=== PATIENT | female | born 1990 | race Two or more races ===

== ENCOUNTER 2019-04-13 18:05 | Inpatient (IN) | payer SELFPAY ==
[~2019-04-13] VITALS: Ht 153 cm; Wt 81.2 kg
[2019-04-13] MEDS ORDERED: ZOLPIDEM 5 MG TABLET. PO PRN (18:15)
[2019-04-13] MEDS ORDERED: ONDANSETRON PF 4 MG/2 ML VIAL. IV PRN (18:15)
[2019-04-13] MEDS ORDERED: TERBUTALINE 1 MG/ML VIAL. SQ PRN (18:15)
[2019-04-13] MEDS ORDERED: NALBUPHINE 10 MG/ML AMPUL. IV PRN ×2 (18:15)
[2019-04-13] MEDS ORDERED: IBUPROFEN 400 MG TABLET. PO PRN (18:15)
[2019-04-13] MEDS ORDERED: CITRIC ACID/SODIUM CITRATE 30 ML SOLUTION. PO PRN (18:15)
[2019-04-13] MEDS ORDERED: LIDOCAINE 1% PF 30 ML VIAL. INJ PRN (18:15)
[2019-04-13] MEDS ORDERED: 0.9 % SODIUM CHLORIDE 10 ML DISP.SYRIN. IV PRN (18:15)
[2019-04-13] MEDS ORDERED: ACETAMINOPHEN 325 MG TABLET. PO PRN (18:15)
[2019-04-13] MEDS ORDERED: DOCUSATE SODIUM 283 MG/5 ML ENEMA. PR PRN (18:15)
[2019-04-13] MEDS ORDERED: fentaNYL PF VIAL 100 MCG/2 ML VIAL IV PRN ×2 (18:15)
[2019-04-13] MEDS ORDERED: MAG HYDROX/ALUMINUM HYD/SIMETH 30 ML ORAL.SUSP PO PRN (18:15)
[2019-04-13] MEDS ORDERED: DINOPROSTONE 10 MG SUPP.VAG VG ONE (18:30)
[2019-04-13] MEDS ORDERED: AMPICILLIN SODIUM 2 GM in IV NORMAL SALINE 100ML 100 ML IV ONE (18:30)
[2019-04-13 18:59] VITALS: BP 114/67
[2019-04-13 19:22] LABS: BASO # 0.1 x10^3/uL (0.0-0.2); BASO % 1 % (0-3); EOS # 0.1 x10^3/uL (0.0-0.7); EOS % 1 % (0-3); HEMATOCRIT 36.5 % (36.0-47.0); HEMOGLOBIN 12.1 g/dL (12.0-15.5); LYMPH # 2.4 x10^3/uL (1.0-4.8); LYMPH % 23 % (24-48); MEAN CORPUSCULAR HEMOGLOBIN 27 pg (25-35); MEAN CORPUSCULAR HGB CONC 33 g/dL (31-37); MEAN CORPUSCULAR VOLUME 82 fL (79-100); MONO # 0.6 x10^3/uL (0.0-1.1); MONO % 6 % (0-9); NEUT % 69 % (31-73); PLATELET COUNT 285 x10^3/uL (140-400); RED BLOOD COUNT 4.42 x10^6/uL (3.50-5.40); RED CELL DISTRIBUTION WIDTH 15.5 % (11.5-14.5); WHITE BLOOD COUNT 10.1 x10^3/uL (4.0-11.0)
[2019-04-13] MEDS: IV RINGERS,LACTATED 1000ML 1,000 ML IV SCH (19:30)
[2019-04-13 21:49] LABS: BILIRUBIN,URINE NEGATIVE (NEG); CLARITY,URINE CLEAR; COLOR,URINE YELLOW; NITRITE,URINE NEGATIVE (NEG); PROTEIN,URINE NEGATIVE (NEG-TRACE); UROBILINOGEN,URINE 0.2 mg/dL (0.2 mg/dL)
[2019-04-13 21:55] LABS: BACTERIA,URINE MODERATE /HPF (0-FEW); RBC,URINE RARE /HPF (0-2); SQUAMOUS EPITHELIAL CELL,UR MANY /LPF; WBC,URINE OCC /HPF (0-4)
[2019-04-13] MEDS: diphenhydrAMINE HCL 25 MG CAPSULE PO PRN (23:09)
[2019-04-14] MEDS: IV RINGERS,LACTATED 1000ML 1,000 ML IV SCH (06:48)
[2019-04-14] MEDS: OXYTOCIN 30 UNIT/500 ML PREMIX 500 ML IV PRN (06:50)
[2019-04-14] MEDS ORDERED: LIDOCAINE 2% PF 5 ML VIAL. ONE (08:19)
[2019-04-14] MEDS: AMPICILLIN SODIUM 1 GM in IV NORMAL SALINE 50ML 50 ML IV SCH (11:17)
--- NOTE | 2019-04-14 13:13 | PDOC1 ---
OB - History Hx of Present Care: Good Care Ultrasounds: Normal mid trimester US Obstetrical Complications: None Medical Complications: None Past Family/Social History * Past Medical, Surgical, Family and Obstetric Histories reviewed from chart. Rubella: Immune RPR/VDRL: Negative GBS Status: Negative HBsAG: Negative OB - Chief Complaint & HPI Date of Admission: Date of Admission: Apr 13, 2019 at 18:05 Chief Complaint/History : 3 Para: 0 EGA: 40 Reason for admission: induction of labor Indication for induction: post dates Admission Nurse Assessment Rev: Yes OB - Admission Exam Physical Exam Vitals: VS - Last 72 Hours, by Label Date Time Temp Pulse Resp B/P (MAP) Pulse Ox O2 Delivery O2 Flow Rate FiO2 04/13/19 18:59 99.1 96 18 114/67 (83) 98 Room Air 99.1 HEENT: Normal Heart: Regular Rate Lungs: Clear Abdomen: Gravid, Non tender, Soft Extremities: Edema Reflexes: Normal Cervical Dilatation: 1cm Effacement: 50% Station: -3 Membranes: Intact Amniotic Fluid: Clear Heart Rate: Normal Accelerations: Accelerations Present Decelerations: No decelerations Contractions on Admission: None Text A: 40 wks IUP IOL post term P: Admit cervidil, then pitocin. AVELINA MEYERS Jr, MD Apr 14, 2019 13:13
[2019-04-14] MEDS ORDERED: DINOPROSTONE 10 MG SUPP.VAG VG ONE (17:00)
[2019-04-14] MEDS: lamoTRIgine 100 MG TABLET. PO SCH (21:39)
[2019-04-14] MEDS: HALOPERIDOL 5 MG TABLET. PO SCH (21:39)
[2019-04-14] MEDS: diphenhydrAMINE HCL 25 MG CAPSULE PO PRN (22:11)
[2019-04-15] MEDS: OXYTOCIN 30 UNIT/500 ML PREMIX 500 ML IV PRN (06:37)
[2019-04-15] MEDS: AMPICILLIN SODIUM 1 GM in IV NORMAL SALINE 50ML 50 ML IV SCH ×2 (06:37→10:20)
--- NOTE | 2019-04-15 08:23 | PDOC ---
OB Progress Note Date of Service 04/15/19 Time of Evaluation 0820 Notes Pt. feeling well. Lab Laboratory Tests Test 04/13/19 19:12 04/13/19 21:40 White Blood Count 10.1 x10^3/uL (4.0-11.0) Red Blood Count 4.42 x10^6/uL (3.50-5.40) Hemoglobin 12.1 g/dL (12.0-15.5) Hematocrit 36.5 % (36.0-47.0) Mean Corpuscular Volume 82 fL (79-100) Mean Corpuscular Hemoglobin 27 pg (25-35) Mean Corpuscular Hemoglobin Concent 33 g/dL (31-37) Red Cell Distribution Width 15.5 % (11.5-14.5) Platelet Count 285 x10^3/uL (140-400) Neutrophils (%) (Auto) 69 % (31-73) Lymphocytes (%) (Auto) 23 % (24-48) Monocytes (%) (Auto) 6 % (0-9) Eosinophils (%) (Auto) 1 % (0-3) Basophils (%) (Auto) 1 % (0-3) Neutrophils # (Auto) 7.0 x10^3/uL (1.8-7.7) Lymphocytes # (Auto) 2.4 x10^3/uL (1.0-4.8) Monocytes # (Auto) 0.6 x10^3/uL (0.0-1.1) Eosinophils # (Auto) 0.1 x10^3/uL (0.0-0.7) Basophils # (Auto) 0.1 x10^3/uL (0.0-0.2) Treponema pallidum Antibody Nonreactive (Nonreactive) Urine Collection Type Unknown Urine Color Yellow Urine Clarity Clear Urine pH 7.0 Urine Specific [place] 1.010 Urine Protein Negative mg/dL (NEG-TRACE) Urine Glucose (UA) 100 mg/dL (NEG) Urine Ketones (Stick) Negative mg/dL (NEG) Urine Blood Negative (NEG) Urine Nitrite Negative (NEG) Urine Bilirubin Negative (NEG) Urine Urobilinogen Dipstick 0.2 mg/dL (0.2 mg/dL) Urine Leukocyte Esterase Negative (NEG) Urine RBC Rare /HPF (0-2) Urine WBC Occ /HPF (0-4) Urine Squamous Epithelial Cells Many /LPF Urine Bacteria Moderate /HPF (0-FEW) Medications Current Medications Sodium Chloride (Normal Saline Flush) 3 ml QSHIFT PRN IV AFTER MEDS AND BLOOD DRAWS; Start 04/13/19 at 18:15 Nalbuphine HCl (Nubain) 5 mg PRN Q1HR PRN IV Mild to moderate labor pain; Start 04/13/19 at 18:15 Nalbuphine HCl (Nubain) 10 mg PRN Q1HR PRN IV Severe labor pain; Start 04/13/19 at 18:15 Fentanyl Citrate (Fentanyl 2ml Vial) 50 mcg PRN Q30MIN PRN IV Mild to moderate pain; Start 04/13/19 at 18:15 Fentanyl Citrate (Fentanyl 2ml Vial) 100 mcg PRN Q30MIN PRN IV Severe pain; Start 04/13/19 at 18:15 Acetaminophen (Tylenol) 650 mg PRN Q6HRS PRN PO MILD PAIN / TEMP; Start 04/13/19 at 18:15 Ondansetron HCl (Zofran) 4 mg PRN Q4HRS PRN IV NAUSEA/VOMITING; Start 04/13/19 at 18:15 Al Hydroxide/Mg Hydroxide (Mylanta Plus Xs) 30 ml PRN Q4HRS PRN PO HEARTBURN / GAS; Start 04/13/19 at 18:15 Citric Acid/ Sodium Citrate (Bicitra) 30 ml 1X PRN PRN PO DYSPEPSIA; Start 04/13/19 at 18:15; Stop 04/14/19 at 18:14; Status DC Zolpidem Tartrate (Ambien) 5 mg PRN QHS PRN PO INSOMNIA; Start 04/13/19 at 18:15 Terbutaline Sulfate (Brethine) 0.25 mg 1X PRN PRN SQ SEE COMMENTS; Start 04/13/19 at 18:15; Stop 04/14/19 at 18:14; Status DC Lidocaine HCl (Xylocaine 1% Pf 30ml Vial) 30 ml 1X PRN PRN INJ SEE COMMENTS; Start 04/13/19 at 18:15; Stop 04/15/19 at 18:14 Ampicillin Sodium 2 gm/Sodium Chloride 100 ml @ 200 mls/hr 1X ONCE IV Last administered on 04/14/19at 06:49; Start 04/13/19 at 18:30; Stop 04/13/19 at 18:59; Status DC Ampicillin Sodium 1 gm/Sodium Chloride 50 ml @ 100 mls/hr Q4H IV Last administered on 04/15/19 06:37; Start 04/13/19 at 22:30 Oxytocin/Sodium Chloride 500 ml @ 0 mls/hr CONT PRN IV SEE I/O RECORD Last administered on 04/15/19 06:37; Start 04/13/19 at 18:15 Ibuprofen (Motrin) 800 mg PRN Q6HRS PRN PO PAIN; Start 04/13/19 at 18:15 Docusate Sodium (Enemeez) 283 mg PRN DAILY PRN [place] CONSTIPATION; Start 04/13/19 at 18:15 Dinoprostone (Cervidil) 10 mg 1X ONCE VG Last administered on 04/13/19 19:24; Start 04/13/19 at 18:30; Stop 04/13/19 at 18:31; Status DC Ringer's Solution 1,000 ml @ 100 mls/hr Q10H IV Last administered on 04/14/19 06:48; Start 04/13/19 at 19:30 Diphenhydramine HCl (Benadryl) 25 mg PRN QHS PRN PO INSOMNIA Last administered on 04/14/19 22:11; Start 04/13/19 at 20:00 Lidocaine HCl (Lidocaine Pf 2% Vial) 5 ml STK-MED ONCE .ROUTE ; Start 04/14/19 at 08:19; Stop 04/14/19 at 08:20; Status DC Haloperidol (Haldol) 5 mg DAILY10 PO Last administered on 04/14/19 21:39; Start 04/14/19 at 14:00 Lamotrigine (LaMICtal) 100 mg DAILY10 PO Last administered on 04/14/19 21:39; Start 04/14/19 at 15:00 Dinoprostone (Cervidil) 10 mg 1X ONCE VG Last administered on 04/14/19 17:16; Start 04/14/19 at 17:00; Stop 04/14/19 at 17:01; Status DC Exam Abd: soft, non tender Pelvic: cervix closed Assessment 40 wks IUP IOL Plan of Care: Continue current Tx, Mgmt (Pt. Day#2 of induction. If no cervical change by noon, then proceed with c/s.) AVELINA MEYERS Jr, MD Apr 15, 2019 08:22
[2019-04-15] MEDS: HALOPERIDOL 5 MG TABLET. PO SCH (10:00)
[2019-04-15] MEDS: lamoTRIgine 100 MG TABLET. PO SCH (10:00)
[2019-04-15] MEDS: IV RINGERS,LACTATED 1000ML 1,000 ML IV SCH ×4 (10:20→22:20)
[2019-04-15] MEDS ORDERED: CITRIC ACID/SODIUM CITRATE 30 ML SOLUTION. PO ONE (11:15)
[2019-04-15] MEDS ORDERED: ONDANSETRON PF 4 MG/2 ML VIAL. ONE ×2 (11:59→12:58)
[2019-04-15] MEDS ORDERED: MORPHINE PF 10 MG/10 ML AMPUL. ONE (11:59)
[2019-04-15] MEDS ORDERED: FAMOTIDINE 20 MG/2 ML VIAL ONE (11:59)
[2019-04-15] MEDS ORDERED: ePHEDrine PF IN SALINE 50 MG/10 ML SYRINGE. IV ONE (11:59)
[2019-04-15] MEDS ORDERED: fentaNYL PF VIAL 100 MCG/2 ML VIAL ONE (11:59)
[2019-04-15 12:06] LABS: HEMATOCRIT 37.1 % (36.0-47.0); HEMOGLOBIN 12.2 g/dL (12.0-15.5); RED BLOOD COUNT 4.52 x10^6/uL (3.50-5.40); RED CELL DISTRIBUTION WIDTH 15.3 % (11.5-14.5)
[2019-04-15] MEDS ORDERED: OXYTOCIN 10 UNIT/ML VIAL. ONE ×2 (12:37→12:38)
--- NOTE | 2019-04-15 13:08 | PDOC4 ---
OB Operative Note Date: Apr 15, 2019 PRE OP DIAGNOSIS: Other (FTD) POST OP DIAGNOSIS: Other (Same) OPERATION PERFORMED: [facility] Surgeon Dr. Valladares [employer] Dr. Murillo Anesthesia: Regional (Spinal) Blood Loss 800 ml Specimen placenta and OB Findings: Position (Vertex), Sex (Male), (8/9), Weight (8 Lb 5 oz) Complications none Additional Remarks pt. AVELINA Jordan Jr, MD Apr 15, 2019 13:08
[2019-04-15] MEDS ORDERED: diphenhydrAMINE ORAL ELIXIR 12.5 MG/5 ML ML PO PRN (13:15)
[2019-04-15] MEDS ORDERED: IBUPROFEN 400 MG TABLET. PO PRN (13:15)
[2019-04-15] MEDS ORDERED: ONDANSETRON PF 4 MG/2 ML VIAL. IV PRN (13:15)
[2019-04-15] MEDS ORDERED: 0.9 % SODIUM CHLORIDE 10 ML DISP.SYRIN. IV PRN (13:15)
[2019-04-15] MEDS ORDERED: ZOLPIDEM 5 MG TABLET. PO PRN (13:15)
[2019-04-15] MEDS ORDERED: OXYTOCIN 30 UNIT/500 ML PREMIX 500 ML IV PRN (13:15)
--- NOTE | 2019-04-15 13:21 | OP ---
DATE OF SURGERY: PREOPERATIVE DIAGNOSIS: Failure to dilate. POSTOPERATIVE DIAGNOSIS: Failure to dilate. PROCEDURE: Primary low transverse section. SURGEON: Avelina Valladares MD SAW SETTER: Dr. Murillo. ANESTHESIA: Spinal. ESTIMATED BLOOD LOSS: 800 mL. COMPLICATIONS: None. FINDINGS: Viable male , Apgars 8 and 9, weight 8 pounds 5 ounces. Three-vessel cord placenta delivered manually intact. SUMMARY: A 28-year-old 3, para 0 at 40 weeks, who presented for induction of labor. She failed to dilate after 2 days of induction. Decision was made to proceed with primary section. She was counseled on the risks, benefits, and expectations and voiced clear understanding to proceed. DESCRIPTION OF PROCEDURE: The patient was taken to surgery suite and placed in dorsal supine position. She was prepped with ChloraPrep and draped in a sterile fashion. After adequate anesthesia, Pfannenstiel skin incision was made with scalpel down to and through the fascia. The fascia was extended laterally using curved Rojas scissors. The superior edge of fascia was grasped with 2 Td clamps and dissected free of the abdominal rectus muscles using blunt dissection along with Bovie cautery. The same process took place inferiorly. The abdominal rectus muscle dissected bluntly at the midline. Peritoneum was entered sharply with Metzenbaum scissors. This incision was extended superiorly as well as inferiorly. The Pierre ring retractor was placed. A low transverse hysterotomy incision was made with scalpel down to the amniotic sac. Hysterotomy incision was extended laterally and superiorly. Amniotomy was performed with Allis clamp. With aid of fundal pressure, the 's head was delivered in a smooth atraumatic manner. With additional fundal pressure, the anterior shoulder was delivered followed by posterior shoulder. Rest of the male was delivered. The was suctioned with a bulb syringe orally and nasally. The umbilical cord was clamped twice and cut and viable male was handed to waiting nursing staff. Umbilical cord blood was then obtained. Three-vessel cord placenta was delivered manually intact. The uterus then exteriorized, cleared of clot and debris with moist lap. The hysterotomy incision was then reapproximated using #1 Vicryl suture in a running locked fashion and imbricated layer of #1 Vicryl suture was utilized in a running fashion for better hemostasis. Uterus palpated firm. Fallopian tubes and ovaries appeared normal bilaterally. Posterior cul-de-sac was cleared of clot and debris with moist lap. The uterus then returned to the abdomen. Pericolic gutters were cleared of clot and debris with moist lap. Hysterotomy incision was reviewed and was hemostatic. The Pierre ring retractor was removed. The peritoneum was reapproximated using #1 Vicryl suture in a running fashion. Fascia was reapproximated using 0 Vicryl suture in running fashion. Skin was reapproximated using 4-0 Vicryl suture in subcuticular manner. The patient tolerated the procedure well and was taken to recovery room in stable condition. Sponge and needle count correct x 3. AVELINA VALLADARES MD DR: ALYSON/ulba JOB#: [id number] / [id number]
[2019-04-15 16:43] VITALS: BP 110/62
[2019-04-15] MEDS ORDERED: FERROUS SULFATE 325 MG TABLET. PO SCH (17:00)
[2019-04-15 19:41] VITALS: BP 107/63
[2019-04-15 23:29] VITALS: BP 107/68
[2019-04-16 03:41] VITALS: BP 99/55
[2019-04-16] MEDS: oxyCODONE/APAP 5/325 1 TAB TABLET PO PRN ×4 (05:10→23:22)
[2019-04-16 05:11] LABS: BASO % 0 % (0-3); EOS # 0.1 x10^3/uL (0.0-0.7); EOS % 1 % (0-3); HEMATOCRIT 32.7 % (36.0-47.0); HEMOGLOBIN 10.8 g/dL (12.0-15.5); LYMPH # 2.5 x10^3/uL (1.0-4.8); LYMPH % 23 % (24-48); MEAN CORPUSCULAR HEMOGLOBIN 27 pg (25-35); MEAN CORPUSCULAR HGB CONC 33 g/dL (31-37); MEAN CORPUSCULAR VOLUME 82 fL (79-100); MONO # 0.7 x10^3/uL (0.0-1.1); MONO % 6 % (0-9); NEUT # 7.7 x10^3/uL (1.8-7.7); NEUT % 70 % (31-73); PLATELET COUNT 253 x10^3/uL (140-400); RED BLOOD COUNT 3.97 x10^6/uL (3.50-5.40); RED CELL DISTRIBUTION WIDTH 15.3 % (11.5-14.5)
[2019-04-16] MEDS: IV RINGERS,LACTATED 1000ML 1,000 ML IV SCH ×2 (07:30→17:30)
[2019-04-16 09:00] VITALS: BP 101/48
--- NOTE | 2019-04-16 09:02 | PDOC ---
OB Progress Note Date of Service 04/16/19 Time of Evaluation 0900 Notes Pt. feeling well. Pain controlled. No complaints. Lab Laboratory Tests Test 04/15/19 11:57 04/16/19 04:30 White Blood Count 13.0 x10^3/uL (4.0-11.0) 11.0 x10^3/uL (4.0-11.0) Red Blood Count 4.52 x10^6/uL (3.50-5.40) 3.97 x10^6/uL (3.50-5.40) Hemoglobin 12.2 g/dL (12.0-15.5) 10.8 g/dL (12.0-15.5) Hematocrit 37.1 % (36.0-47.0) 32.7 % (36.0-47.0) Mean Corpuscular Volume 82 fL (79-100) 82 fL (79-100) Mean Corpuscular Hemoglobin 27 pg (25-35) 27 pg (25-35) Mean Corpuscular Hemoglobin Concent 33 g/dL (31-37) 33 g/dL (31-37) Red Cell Distribution Width 15.3 % (11.5-14.5) 15.3 % (11.5-14.5) Platelet Count 285 x10^3/uL (140-400) 253 x10^3/uL (140-400) Neutrophils (%) (Auto) 70 % (31-73) Lymphocytes (%) (Auto) 23 % (24-48) Monocytes (%) (Auto) 6 % (0-9) Eosinophils (%) (Auto) 1 % (0-3) Basophils (%) (Auto) 0 % (0-3) Neutrophils # (Auto) 7.7 x10^3/uL (1.8-7.7) Lymphocytes # (Auto) 2.5 x10^3/uL (1.0-4.8) Monocytes # (Auto) 0.7 x10^3/uL (0.0-1.1) Eosinophils # (Auto) 0.1 x10^3/uL (0.0-0.7) Basophils # (Auto) 0.0 x10^3/uL (0.0-0.2) Laboratory Tests Test 04/15/19 11:57 04/16/19 04:30 White Blood Count 13.0 x10^3/uL (4.0-11.0) 11.0 x10^3/uL (4.0-11.0) Red Blood Count 4.52 x10^6/uL (3.50-5.40) 3.97 x10^6/uL (3.50-5.40) Hemoglobin 12.2 g/dL (12.0-15.5) 10.8 g/dL (12.0-15.5) Hematocrit 37.1 % (36.0-47.0) 32.7 % (36.0-47.0) Mean Corpuscular Volume 82 fL (79-100) 82 fL (79-100) Mean Corpuscular Hemoglobin 27 pg (25-35) 27 pg (25-35) Mean Corpuscular Hemoglobin Concent 33 g/dL (31-37) 33 g/dL (31-37) Red Cell Distribution Width 15.3 % (11.5-14.5) 15.3 % (11.5-14.5) Platelet Count 285 x10^3/uL (140-400) 253 x10^3/uL (140-400) Neutrophils (%) (Auto) 70 % (31-73) Lymphocytes (%) (Auto) 23 % (24-48) Monocytes (%) (Auto) 6 % (0-9) Eosinophils (%) (Auto) 1 % (0-3) Basophils (%) (Auto) 0 % (0-3) Neutrophils # (Auto) 7.7 x10^3/uL (1.8-7.7) Lymphocytes # (Auto) 2.5 x10^3/uL (1.0-4.8) Monocytes # (Auto) 0.7 x10^3/uL (0.0-1.1) Eosinophils # (Auto) 0.1 x10^3/uL (0.0-0.7) Basophils # (Auto) 0.0 x10^3/uL (0.0-0.2) Medications Current Medications Sodium Chloride (Normal Saline Flush) 3 ml QSHIFT PRN IV AFTER MEDS AND BLOOD DRAWS; Start 04/13/19 at 18:15 Nalbuphine HCl (Nubain) 5 mg PRN Q1HR PRN IV Mild to moderate labor pain; Start 04/13/19 at 18:15 Nalbuphine HCl (Nubain) 10 mg PRN Q1HR PRN IV Severe labor pain; Start 04/13/19 at 18:15 Fentanyl Citrate (Fentanyl 2ml Vial) 50 mcg PRN Q30MIN PRN IV Mild to moderate pain; Start 04/13/19 at 18:15 Fentanyl Citrate (Fentanyl 2ml Vial) 100 mcg PRN Q30MIN PRN IV Severe pain Last administered on 04/15/19at 15:02; Start 04/13/19 at 18:15 Acetaminophen (Tylenol) 650 mg PRN Q6HRS PRN PO MILD PAIN / TEMP; Start 04/13/19 at 18:15 Ondansetron HCl (Zofran) 4 mg PRN Q4HRS PRN IV NAUSEA/VOMITING; Start 04/13/19 at 18:15 Al Hydroxide/Mg Hydroxide (Mylanta Plus Xs) 30 ml PRN Q4HRS PRN PO HEARTBURN / GAS; Start 04/13/19 at 18:15 Citric Acid/ Sodium Citrate (Bicitra) 30 ml 1X PRN PRN PO DYSPEPSIA; Start 04/13/19 at 18:15; Stop 04/14/19 at 18:14; Status DC Zolpidem Tartrate (Ambien) 5 mg PRN QHS PRN PO INSOMNIA; Start 04/13/19 at 18: 15 Terbutaline Sulfate (Brethine) 0.25 mg 1X PRN PRN SQ SEE COMMENTS; Start 04/13/19 at 18:15; Stop 04/14/19 at 18:14; Status DC Lidocaine HCl (Xylocaine 1% Pf 30ml Vial) 30 ml 1X PRN PRN INJ SEE COMMENTS; Start 04/13/19 at 18:15; Stop 04/15/19 at 18:14; Status DC Ampicillin Sodium 2 gm/Sodium Chloride 100 ml @ 200 mls/hr 1X ONCE IV Last administered on 04/14/19at 06:49; Start 04/13/19 at 18:30; Stop 04/13/19 at 18:59; Status DC Ampicillin Sodium 1 gm/Sodium Chloride 50 ml @ 100 mls/hr Q4H IV Last administered on 04/15/19at 10:20; Start 04/13/19 at 22:30; Stop 04/15/19 at 22:23; Status DC Oxytocin/Sodium Chloride 500 ml @ 0 mls/hr CONT PRN IV SEE I/O RECORD Last administered on 04/15/19 06:37; Start 04/13/19 at 18:15 Ibuprofen (Motrin) 800 mg PRN Q6HRS PRN PO PAIN Last administered on 04/15/19 23:27; Start 04/13/19 at 18:15 Docusate Sodium (Enemeez) 283 mg PRN DAILY PRN [place] CONSTIPATION; Start 04/13/19 at 18:15 Dinoprostone (Cervidil) 10 mg 1X ONCE VG Last administered on 04/13/19 19:24; Start 04/13/19 at 18:30; Stop 04/13/19 at 18:31; Status DC Ringer's Solution 1,000 ml @ 100 mls/hr Q10H IV Last administered on 04/15/19 22:20; Start 04/13/19 at 19:30 Diphenhydramine HCl (Benadryl) 25 mg PRN QHS PRN PO INSOMNIA Last administered on 04/14/19 22:11; Start 04/13/19 at 20:00 Lidocaine HCl (Lidocaine Pf 2% Vial) 5 ml STK-MED ONCE .ROUTE ; Start 04/14/19 at 08:19; Stop 04/14/19 at 08:20; Status DC Haloperidol (Haldol) 5 mg DAILY10 PO Last administered on 04/14/19 21:39; Start 04/14/19 at 14:00 Lamotrigine (LaMICtal) 100 mg DAILY10 PO Last administered on 04/14/19 21:39; Start 04/14/19 at 15:00 Dinoprostone (Cervidil) 10 mg 1X ONCE VG Last administered on 04/14/19 17:16; Start 04/14/19 at 17:00; Stop 04/14/19 at 17:01; Status DC Cefazolin Sodium 50 ml @ 100 mls/hr 1X ONCE IV Last administered on 04/15/19 11:52; Start 04/15/19 at 11:30; Stop 04/15/19 at 11:59; Status DC Citric Acid/ Sodium Citrate (Bicitra) 30 ml 1X ONCE PO Last administered on 11/8/19at 11:52; Start 04/15/19 at 11:15; Stop 04/15/19 at 11:16; Status DC Famotidine (Pepcid Vial) 20 mg STK-MED ONCE .ROUTE ; Start 04/15/19 at 11:59; Stop 04/15/19 at 11:59; Status DC Ondansetron HCl (Zofran) 4 mg STK-MED ONCE .ROUTE ; Start 04/15/19 at 11:59; Stop 04/15/19 at 11:59; Status DC Ephedrine Sulfate (ePHEDrine PF IN SALINE SYRINGE) 50 mg STK-MED ONCE IV ; Start 04/15/19 at 11:59; Stop 04/15/19 at 11:59; Status DC Morphine Sulfate (Morphine Preservative Free) 10 mg STK-MED ONCE .ROUTE ; Start 04/15/19 at 11:59; Stop 04/15/19 at 11:59; Status DC Fentanyl Citrate (Fentanyl 2ml Vial) 100 mcg STK-MED ONCE .ROUTE ; Start 04/15/19 at 11:59; Stop 04/15/19 at 12:00; Status DC Oxytocin (Pitocin) 10 unit STK-MED ONCE .ROUTE ; Start 04/15/19 at 12:37; Stop 04/15/19 at 12:38; Status DC Oxytocin (Pitocin) 10 unit STK-MED ONCE .ROUTE ; Start 04/15/19 at 12:38; Stop 04/15/19 at 12:38; Status DC Ondansetron HCl (Zofran) 4 mg STK-MED ONCE .ROUTE ; Start 04/15/19 at 12:58; Stop 04/15/19 at 12:58; Status DC Sodium Chloride (Normal Saline Flush) 3 ml QSHIFT PRN IV AFTER MEDS AND BLOOD DRAWS; Start 04/15/19 at 13:15 Oxytocin/Sodium Chloride 500 ml @ 125 mls/hr CONT PRN IV EXCESSIVE POST- BLEEDING; Start 04/15/19 at 13:15; Stop 04/15/19 at 21:14; Status DC Ibuprofen (Motrin) 800 mg PRN Q4HRS PRN PO INFLAMMATION; Start 04/15/19 at 13:15 Ondansetron HCl (Zofran) 4 mg PRN Q6HRS PRN IV NAUSEA/VOMITING; Start 04/15/19 at 13:15 Docusate Sodium (Colace) 100 mg PRN BID PRN PO CONSTIPATION; Start 04/15/19 at 13:15 Al Hydroxide/Mg Hydroxide (Mylanta Plus Xs) 30 ml PRN Q4HRS PRN PO HEARTBURN / GAS; Start 04/15/19 at 13:15 Simethicone (Gas-X) 80 mg PRN AFTMEALHC PRN PO GAS / BLOATING; Start 04/15/19 at 13:15 Diphenhydramine HCl (Benadryl Oral Elixir) 12.5 mg PRN Q6HRS PRN PO ITCHING; Start 04/15/19 at 13:15 Ferrous Sulfate (Feosol) 325 mg BIDWMEALS PO ; Start 04/15/19 at 17:00; Stop 04/16/19 at 05:50; Status DC Zolpidem Tartrate (Ambien) 5 mg PRN QHS PRN PO INSOMNIA, MAY REPEAT X1; Start 04/15/19 at 13:15 Oxycodone/ Acetaminophen (Percocet 5/325) 2 tab PRN Q4HRS PRN PO MODERATE PAIN, SEVERE PAIN Last administered on 04/16/19at 05:10; Start 04/15/19 at 13:15 Exam Abd: soft, mild tenderness Incision site: intact Assessment POD#1 s/p c/s Plan of Care: Continue current Tx, Mgmt AVELINA MEYERS Jr, MD Apr 16, 2019 09:02
[2019-04-16] MEDS: HALOPERIDOL 5 MG TABLET. PO SCH (09:11)
[2019-04-16] MEDS: DOCUSATE SODIUM 100 MG CAPSULE. PO PRN ×2 (09:12→18:30)
[2019-04-16 10:20] VITALS: BP 92/51
--- NOTE | 2019-04-16 10:45 | NUR ---
This am around 0945 pt. up to bathroom for the first time since night RN removed alaniz catheter. This nurse asked pt. if she would like to shower later today. Pt. stated she would shower now since we were getting up. This nurse stayed with pt. while using the bathroom and then helped pt. into shower with shower chair. This nurse made sure pt. had emergency string within reach and asked pt. if she would like this nurse to stay close while pt. was in the shower. Pt. stated she wanted to sit and let the water run on her for a little while. Pt. stated she wanted nurse to come back later and she would pull the emergency string if needed. Around 1000 this nurse heard pt. emergency bathroom light and went running to help pt. Pt. was sitting on shower chair and stated she did not feel good. Pt. looked pale and had trouble keeping her eyes open. This nurse stayed with pt. and called for help. When help arrived this nurse got pt. a cold wash cloth for her face and popped an ammonia inhalent. Once pt. color returned and pt. was able to keep her eyes open this nurse and another RN helped pt. dry off, change, and get back into bed. This nurse got pt. ice water, took VS, and educated pt. on using the call light before getting out of bed. Will continue to monitor.
[2019-04-16 12:00] VITALS: BP 96/45
[2019-04-16] MEDS: lamoTRIgine 100 MG TABLET. PO SCH (12:52)
[2019-04-16] MEDS ORDERED: AMMONIA AROMATIC 15% INHALANT AMPUL. ONE ×2 (16:25→17:00)
[2019-04-16 17:07] VITALS: BP 111/64
[2019-04-16 23:15] VITALS: BP 102/55
[2019-04-17] MEDS: IV RINGERS,LACTATED 1000ML 1,000 ML IV SCH (03:30)
[2019-04-17] MEDS: IBUPROFEN 400 MG TABLET. PO PRN ×2 (05:01→18:03)
[2019-04-17 05:10] VITALS: BP_SYST 113; BP_SYST 97; BP_DIAS 53; BP_DIAS 79
--- NOTE | 2019-04-17 09:11 | PDOC ---
OB Progress Note Date of Service 04/17/19 Time of Evaluation 0900 Notes Pt. feeling well. Pain controlled. No complaints. Lab Laboratory Tests Test 04/15/19 11:57 04/16/19 04:30 White Blood Count 13.0 x10^3/uL (4.0-11.0) 11.0 x10^3/uL (4.0-11.0) Red Blood Count 4.52 x10^6/uL (3.50-5.40) 3.97 x10^6/uL (3.50-5.40) Hemoglobin 12.2 g/dL (12.0-15.5) 10.8 g/dL (12.0-15.5) Hematocrit 37.1 % (36.0-47.0) 32.7 % (36.0-47.0) Mean Corpuscular Volume 82 fL (79-100) 82 fL (79-100) Mean Corpuscular Hemoglobin 27 pg (25-35) 27 pg (25-35) Mean Corpuscular Hemoglobin Concent 33 g/dL (31-37) 33 g/dL (31-37) Red Cell Distribution Width 15.3 % (11.5-14.5) 15.3 % (11.5-14.5) Platelet Count 285 x10^3/uL (140-400) 253 x10^3/uL (140-400) Neutrophils (%) (Auto) 70 % (31-73) Lymphocytes (%) (Auto) 23 % (24-48) Monocytes (%) (Auto) 6 % (0-9) Eosinophils (%) (Auto) 1 % (0-3) Basophils (%) (Auto) 0 % (0-3) Neutrophils # (Auto) 7.7 x10^3/uL (1.8-7.7) Lymphocytes # (Auto) 2.5 x10^3/uL (1.0-4.8) Monocytes # (Auto) 0.7 x10^3/uL (0.0-1.1) Eosinophils # (Auto) 0.1 x10^3/uL (0.0-0.7) Basophils # (Auto) 0.0 x10^3/uL (0.0-0.2) Medications Current Medications Sodium Chloride (Normal Saline Flush) 3 ml QSHIFT PRN IV AFTER MEDS AND BLOOD DRAWS; Start 04/13/19 at 18:15 Nalbuphine HCl (Nubain) 5 mg PRN Q1HR PRN IV Mild to moderate labor pain; Start 04/13/19 at 18:15; Stop 04/16/19 at 11:55; Status DC Nalbuphine HCl (Nubain) 10 mg PRN Q1HR PRN IV Severe labor pain; Start 04/13/19 at 18:15; Stop 04/16/19 at 11:55; Status DC Fentanyl Citrate (Fentanyl 2ml Vial) 50 mcg PRN Q30MIN PRN IV Mild to moderate pain; Start 04/13/19 at 18:15 Fentanyl Citrate (Fentanyl 2ml Vial) 100 mcg PRN Q30MIN PRN IV Severe pain Last administered on 04/15/19at 15:02; Start 04/13/19 at 18:15 Acetaminophen (Tylenol) 650 mg PRN Q6HRS PRN PO MILD PAIN / TEMP; Start 04/13/19 at 18:15 Ondansetron HCl (Zofran) 4 mg PRN Q4HRS PRN IV NAUSEA/VOMITING; Start 04/13/19 at 18:15; Stop 04/16/19 at 11:54; Status DC Al Hydroxide/Mg Hydroxide (Mylanta Plus Xs) 30 ml PRN Q4HRS PRN PO HEARTBURN / GAS; Start 04/13/19 at 18:15; Stop 04/16/19 at 11:54; Status DC Citric Acid/ Sodium Citrate (Bicitra) 30 ml 1X PRN PRN PO DYSPEPSIA; Start 04/13/19 at 18:15; Stop 04/14/19 at 18:14; Status DC Zolpidem Tartrate (Ambien) 5 mg PRN QHS PRN PO INSOMNIA; Start 04/13/19 at 18:15; Stop 04/16/19 at 11:54; Status DC Terbutaline Sulfate (Brethine) 0.25 mg 1X PRN PRN SQ SEE COMMENTS; Start 04/13/19 at 18:15; Stop 04/14/19 at 18:14; Status DC Lidocaine HCl (Xylocaine 1% Pf 30ml Vial) 30 ml 1X PRN PRN INJ SEE COMMENTS; Start 04/13/19 at 18:15; Stop 04/15/19 at 18:14; Status DC Ampicillin Sodium 2 gm/Sodium Chloride 100 ml @ 200 mls/hr 1X ONCE IV Last administered on 04/14/19 06:49; Start 04/13/19 at 18:30; Stop 04/13/19 at 18:59; Status DC Ampicillin Sodium 1 gm/Sodium Chloride 50 ml @ 100 mls/hr Q4H IV Last administered on 04/15/19 10:20; Start 04/13/19 at 22:30; Stop 04/15/19 at 22:23; Status DC Oxytocin/Sodium Chloride 500 ml @ 0 mls/hr CONT PRN IV SEE I/O RECORD Last administered on 04/15/19 06:37; Start 04/13/19 at 18:15 Ibuprofen (Motrin) 800 mg PRN Q6HRS PRN PO PAIN Last administered on 04/15/19 23:27; Start 04/13/19 at 18:15; Stop 04/16/19 at 11:54; Status DC Docusate Sodium (Enemeez) 283 mg PRN DAILY PRN [place] CONSTIPATION; Start 04/13/19 at 18:15 Dinoprostone (Cervidil) 10 mg 1X ONCE VG Last administered on 04/13/19 19:24; Start 04/13/19 at 18:30; Stop 04/13/19 at 18:31; Status DC Ringer's Solution 1,000 ml @ 100 mls/hr Q10H IV Last administered on 04/15/19 22:20; Start 04/13/19 at 19:30; Stop 04/17/19 at 06:06; Status DC Diphenhydramine HCl (Benadryl) 25 mg PRN QHS PRN PO INSOMNIA Last administered on 04/14/19 22:11; Start 04/13/19 at 20:00 Lidocaine HCl (Lidocaine Pf 2% Vial) 5 ml STK-MED ONCE .ROUTE ; Start 04/14/19 at 08:19; Stop 04/14/19 at 08:20; Status DC Haloperidol (Haldol) 5 mg DAILY10 PO Last administered on 04/16/19at 09:11; Start 04/14/19 at 14:00 Lamotrigine (LaMICtal) 100 mg DAILY10 PO Last administered on 11/9/19at 12:52; Start 04/14/19 at 15:00 Dinoprostone (Cervidil) 10 mg 1X ONCE VG Last administered on 04/14/19at 17:16; Start 04/14/19 at 17:00; Stop 04/14/19 at 17:01; Status DC Cefazolin Sodium 50 ml @ 100 mls/hr 1X ONCE IV Last administered on 04/15/19at 11:52; Start 04/15/19 at 11:30; Stop 04/15/19 at 11:59; Status DC Citric Acid/ Sodium Citrate (Bicitra) 30 ml 1X ONCE PO Last administered on 04/15/19at 11:52; Start 04/15/19 at 11:15; Stop 04/15/19 at 11:16; Status DC Famotidine (Pepcid Vial) 20 mg STK-MED ONCE .ROUTE ; Start 04/15/19 at 11:59; Stop 04/15/19 at 11:59; Status DC Ondansetron HCl (Zofran) 4 mg STK-MED ONCE .ROUTE ; Start 04/15/19 at 11:59; Stop 04/15/19 at 11:59; Status DC Ephedrine Sulfate (ePHEDrine PF IN SALINE SYRINGE) 50 mg STK-MED ONCE IV ; Start 04/15/19 at 11:59; Stop 04/15/19 at 11:59; Status DC Morphine Sulfate (Morphine Preservative Free) 10 mg STK-MED ONCE .ROUTE ; Start 04/15/19 at 11:59; Stop 04/15/19 at 11:59; Status DC Fentanyl Citrate (Fentanyl 2ml Vial) 100 mcg STK-MED ONCE .ROUTE ; Start 04/15/19 at 11:59; Stop 04/15/19 at 12:00; Status DC Oxytocin (Pitocin) 10 unit STK-MED ONCE .ROUTE ; Start 04/15/19 at 12:37; Stop 04/15/19 at 12:38; Status DC Oxytocin (Pitocin) 10 unit STK-MED ONCE .ROUTE ; Start 04/15/19 at 12:38; Stop 04/15/19 at 12:38; Status DC Ondansetron HCl (Zofran) 4 mg STK-MED ONCE .ROUTE ; Start 04/15/19 at 12:58; Stop 04/15/19 at 12:58; Status DC Sodium Chloride (Normal Saline Flush) 3 ml QSHIFT PRN IV AFTER MEDS AND BLOOD DRAWS; Start 04/15/19 at 13:15; Status Cancel Oxytocin/Sodium Chloride 500 ml @ 125 mls/hr CONT PRN IV EXCESSIVE POST- BLEEDING; Start 04/15/19 at 13:15; Stop 04/15/19 at 21:14; Status DC Ibuprofen (Motrin) 800 mg PRN Q4HRS PRN PO INFLAMMATION Last administered on 04/16/19at 18:30; Start 04/15/19 at 13:15; Stop 04/17/19 at 03:05; Status DC Ondansetron HCl (Zofran) 4 mg PRN Q6HRS PRN IV NAUSEA/VOMITING; Start 04/15/19 at 13:15 Docusate Sodium (Colace) 100 mg PRN BID PRN PO CONSTIPATION Last administered on 04/16/19at 18:30; Start 04/15/19 at 13:15 Al Hydroxide/Mg Hydroxide (Mylanta Plus Xs) 30 ml PRN Q4HRS PRN PO HEARTBURN / GAS; Start 04/15/19 at 13:15 Simethicone (Gas-X) 80 mg PRN AFTMEALHC PRN PO GAS / BLOATING; Start 04/15/19 at 13:15 Diphenhydramine HCl (Benadryl Oral Elixir) 12.5 mg PRN Q6HRS PRN PO ITCHING; Start 04/15/19 at 13:15 Ferrous Sulfate (Feosol) 325 mg BIDWMEALS PO ; Start 04/15/19 at 17:00; Stop 04/16/19 at 05:50; Status DC Zolpidem Tartrate (Ambien) 5 mg PRN QHS PRN PO INSOMNIA, MAY REPEAT X1; Start 04/15/19 at 13:15 Oxycodone/ Acetaminophen (Percocet 5/325) 2 tab PRN Q4HRS PRN PO MODERATE PAIN, SEVERE PAIN Last administered on 04/16/19at 23:22; Start 04/15/19 at 13:15 Ammonia (Aromatic Spirit) (Amoply) 1 each STK-MED ONCE .ROUTE ; Start 04/16/19 at 16:25; Stop 04/16/19 at 16:25; Status DC Ibuprofen (Motrin) 800 mg PRN Q6HRS PRN PO INFLAMMATION Last administered on 04/17/19at 05:01; Start 04/17/19 at 03:15 Exam Abd: soft, non tender, fundus firm Incision site: clean, dry and intact Assessment POD#2 s/p c/s Plan of Care: Continue current Tx, Mgmt AVELINA MEYERS Jr, MD Apr 17, 2019 09:11
[2019-04-17] MEDS: lamoTRIgine 100 MG TABLET. PO SCH (11:42)
[2019-04-17] MEDS: DOCUSATE SODIUM 100 MG CAPSULE. PO PRN ×2 (11:42→22:06)
[2019-04-17] MEDS: oxyCODONE/APAP 5/325 1 TAB TABLET PO PRN ×3 (11:42→22:06)
[2019-04-17] MEDS: HALOPERIDOL 5 MG TABLET. PO SCH (11:42)
[2019-04-17 11:54] VITALS: BP 105/70
[2019-04-17 17:45] VITALS: BP 93/62
[2019-04-17] MEDS: SIMETHICONE 80 MG TAB.CHEW PO PRN ×2 (18:03→21:34)
[2019-04-17] MEDS: MAG HYDROX/ALUMINUM HYD/SIMETH 30 ML ORAL.SUSP PO PRN (21:34)
[2019-04-18 00:40] VITALS: BP 104/59
[2019-04-18] MEDS: MAG HYDROX/ALUMINUM HYD/SIMETH 30 ML ORAL.SUSP PO PRN (03:02)
[2019-04-18 05:55] VITALS: BP 108/65
[2019-04-18] MEDS ORDERED: MAGNESIUM HYDROXIDE 2,400 MG/30 ML ORAL.SUSP. PO PRN (08:00)
--- NOTE | 2019-04-18 08:03 | PDOC3 ---
OB DISCHARGE SUMMARY DATE OF ADMISSION: 04/15/19 DATE OF DISCHARGE: 04/18/19 REASON FOR ADMISSION: section INTRAPARTUM PROCEDURES: : Low Cerv Trans DISCHARGE DIAGNOSIS: Term Delivered DISCHARGE INFORMATION: Activity (ad kalpesh), Diet (regular), Instructions (pelvic rest x 6 wks, no driving x 2 wks, no lifting > 20 lbs x 6 wks) HOSPITAL COURSE Term gestation delivered via section without complications AVELINA MEYERS Jr, MD Apr 18, 2019 08:03
[2019-04-18] MEDS ORDERED: OXYC1TAB15 PO (08:08)
[2019-04-18] MEDS ORDERED: DOCU-153 PO (08:08)
[2019-04-18] MEDS ORDERED: IBUP-1027 PO (08:08)
--- NOTE | 2019-04-18 08:09 | DISCH ---
DISCHARGE INSTRUCTIONS Condition on Discharge Condition on Discharge: Stable Activity After Discharge Activity Instructions for Disc: Activity as tolerated Lifting Instructions after Dis: No heavy lifting Driving Instructions after Dis: No driving for 2 weeks Diet after Discharge Diet after Discharge: Regular Contacting the DRFrances after DC Call your doctor for: Concerns you may have Follow-Up Follow up with: Dr. Valladares in 2 wks AVELINA VALLADARES Jr, MD Apr 18, 2019 08:09
[2019-04-18] MEDS: HALOPERIDOL 5 MG TABLET. PO SCH (09:14)
[2019-04-18] MEDS: lamoTRIgine 100 MG TABLET. PO SCH (09:14)
[2019-04-18] MEDS: SIMETHICONE 80 MG TAB.CHEW PO PRN (09:15)
[2019-04-18] MEDS: DOCUSATE SODIUM 100 MG CAPSULE. PO PRN (09:15)
[2019-04-18] MEDS: oxyCODONE/APAP 5/325 1 TAB TABLET PO PRN (11:00)
[2019-04-18] MEDS: IBUPROFEN 400 MG TABLET. PO PRN (11:01)
[2019-04-18 13:00] VITALS: BP 99/62
[2019-04-18 17:35] VITALS: BP 111/67
== END 2019-04-18 19:20 | disposition home or self-care (01) | DRG 788 ==
LOC: 3 SO LND 18:05 → 3 NORTH 04-15 16:16
PROVIDERS: ADMIT Obstetrics & Gynecology; ATTEND Obstetrics & Gynecology
PROC: 10D00Z1 Extraction of Products of Conception, Low, Open Approach (ICD-10-PCS; principal; 2019-04-15)
DX: O80 Encounter for full-term uncomplicated delivery (principal); Z3A.40 40 weeks gestation of pregnancy; Z37.0 Single live birth
CPT/HCPCS: 36415; 81001; 85025; 85027; 86592; 86850; 86900; 86901; 87086; J0171; J0290; J0690; J2274; J2405; J2590; J3010; J3490; J7120; Q0163; G0378